=== PATIENT | male | born 1950 | race Caucasian/White ===

== ENCOUNTER → 2024-07-23 | Outpatient (CLI) | payer MEDICARE ==
--- NOTE | 2024-07-24 08:42 | XR ---
EXAMINATION TYPE: XR lumbar spine 3V, XR Hip Complete 2 views RT, XR knee 2 views RT DATE OF EXAM: 07/23/2024 COMPARISON: NONE CLINICAL INDICATION: Male, 74 years old with history of M54.9, M25.551, M25.561; pain and trouble wal steve, history of arthritis FINDINGS: Lumbar spine: There is a grade 3 anterolisthesis L5-S1 with severe degenerative disc disease and endplate spondylos is. Mild to moderate degenerative disc disease and endplate spondylosis throughout the remainder of t he lumbar spine. Vertebral body heights are preserved. Right hip: There is moderate degenerative change of the right hip with axial and weightbearing joint space loss and marginal spurring. No acute fracture, subluxation, or dislocation. Right knee: No joint effusion. Tricompartmental degenerative spurring. At least moderate loss of cartilage and danii int space in the medial compartment with some medial sided loose bodies measuring up to 1.3 cm. Addit ional posterior loose bodies measuring up to 1.2 cm. No acute fracture, subluxation, dislocation. IMPRESSION: 1. Lumbar spine: Grade 3 anterolisthesis at L5-S1 with severe degenerative disc disease. Advanced hyp ertrophic facet arthropathy lower lumbar spine. Unclear if the spondylolisthesis secondary to L5 pars defects or severe facet arthropathy. Mild to moderate degenerative disc disease throughout the remai nder of the lumbar spine. 2. Right hip: Moderate right hip OA. No acute osseous abnormality seen. 3. Right knee: Tricompartment osteoarthrosis, at least moderate in the medial compartment with scatte red loose bodies medially and posteriorly. [facility], Workstation: [email or web address], 07/24/2024 8:40 AM
== END | disposition home or self-care (01) ==
LOC: RADXRMAIN 16:57
PROVIDERS: ATTEND Internal Medicine Geriatric Medicine
DX: M51.379 Other intervertebral disc degeneration, lumbosacral region without mention of lumbar back pain or lower extremity pain (principal); M47.816 Spondylosis without myelopathy or radiculopathy, lumbar region; M43.17 Spondylolisthesis, lumbosacral region; M16.11 Unilateral primary osteoarthritis, right hip; M17.11 Unilateral primary osteoarthritis, right knee
CPT/HCPCS: 72100; 73502

== ENCOUNTER → 2024-08-16 | Outpatient (CLI) | payer MEDICARE ==
--- NOTE | 2024-08-16 10:18 | MR ---
EXAMINATION TYPE: MR lumbar spine wo/w con DATE OF EXAM: 08/16/2024 10:02 AM COMPARISON: None. CLINICAL INDICATION: Male, 74 years old with history of M43.16 SPONDOLISTHESIS, Low back pain into Ri ght thigh/leg x1 year TECHNIQUE: Multiplanar, multisequence images of the lumbar spine were acquired. IV Contrast: 10 mL Gadobutrol (None, if empty) FINDINGS: Cord ends at the L1-L2 level. L5-S1: There is a grade 2 spondylolisthesis of L5 anteriorly on S1. There is loss of disc height at t his level. Disc uncovering is present. No AP spinal canal stenosis is present. Severe bilateral toi inal stenosis is present L4-L5: No focal disc herniation or significant disc bulge. No spinal canal stenosis. Neural foramen are patent. Some facet hypertrophy with ligamentum flavum laxity is present. L3-L4: No focal disc herniation or significant disc bulge. No spinal canal stenosis. Neural foramen are patent. Mild ligamentum flavum laxity is present. L2-L3: No focal disc herniation or significant disc bulge. No spinal canal stenosis. Neural foramen are patent. L1-L2: No focal disc herniation or significant disc bulge. No spinal canal stenosis. Neural foramen are patent. T12-L1: There is increased signal within the L1 vertebral body on T1 and T2-weighted sequences. Some patchy enhancement may be present post contrast imaging. Findings favor a vertebral body hemangioma. If there is clinical concern for metastasis, bone scan could be performed. Signal change in the anter ior inferior vertebral body is less typical for hemangioma. This is not definitely enhancing. On bone scan may be useful for additional evaluation. No focal disc herniation or significant disc bulge. No spinal canal stenosis. Neural foramen are pa tent. IMPRESSION: 1. Grade 2 spondylolisthesis with loss of disc height at L5-S1. Severe bilateral foraminal stenosis i s present. Correlate with S1 radicular symptoms. 2. Suspected hemangioma within the L1 vertebral body. 3. An atypical area of signal may be within the inferior T12 vertebral body. Consider nuclear medicin e bone scan for additional evaluation. [facility], , 08/16/2024 10:15 AM
== END | disposition home or self-care (01) ==
LOC: RADMRIMAIN 08:48
PROVIDERS: ATTEND Internal Medicine Geriatric Medicine
DX: M48.061 Spinal stenosis, lumbar region without neurogenic claudication (principal); M43.17 Spondylolisthesis, lumbosacral region
CPT/HCPCS: 72158; A9585

== ENCOUNTER → 2024-08-28 | Outpatient (CLI) | payer MEDICARE ==
--- NOTE | 2024-08-28 14:47 | NM ---
INDICATION: Patient age:Male; 74 years old; Reason for study: R93.7 previous abnormal findings; [facility]. COMPARISON: MR lumbar spine 08/16/2024, lumbar spine radiograph 129.5. TECHNIQUE: Intravenous administration of 22.9 mCi of Technetium 99m-Medronate followed by multiple sc intigraphic images of the appendicular and axial skeleton. Additionally, small field of view planar a nterior and posterior images of the chest and lumbosacral spine were obtained. FINDINGS: There is increased uptake within the bilateral great toes, bilateral knee, right hip, and right rapp oclavicular joint consistent with degenerative changes. No other photopenic areas or areas of increas ed activity are identified. No suspicious uptake within the spine. Physiologic radiotracer activity is demonstrated in the kidneys and bladder. Delayed radiotracer iden tified within the left renal collecting system and ureter. IMPRESSION: 1. No suspicious uptake within the lumbar spine corresponding to MRI. 2. Retained radiotracer within the left renal collecting system and ureter. Raises concern for hydrou reteronephrosis. Recommend further evaluation with ultrasound. [facility], , 08/28/2024 2:45 PM
== END | disposition home or self-care (01) ==
LOC: RADNMMAIN 09:53
PROVIDERS: ATTEND Internal Medicine Geriatric Medicine
DX: R93.7 Abnormal findings on diagnostic imaging of other parts of musculoskeletal system (principal)
CPT/HCPCS: 78306; A9503

== ENCOUNTER → 2024-09-15 | Outpatient (CLI) | payer MEDICARE ==
--- NOTE | 2024-09-15 15:01 | US ---
EXAMINATION TYPE: US kidneys/renal and bladder DATE OF EXAM: 09/15/2024 COMPARISON: NM 2024. MRI lumbar spine August 16, 2024 CLINICAL INDICATION: Male, 74 years old with history of R93.89 ABNORMAL FINDINGS ON DX IMAGING OF OTH BODY; abnormal bone scan. TECHNIQUE: Grayscale imaging of the bilateral kidneys and urinary bladder: FINDINGS: EXAM MEASUREMENTS: Right Kidney: 12.4 x 5.5 x 5.9 cm Left Kidney: 9.8 x 4.1 x 4.7 cm Right Kidney: wnl Left Kidney: small in sized when compared to right kidney, hydronephrosis, 1.3cm anechoic area infer ior pole, cortical thinning, lobulated contour Bladder: wnl Bilateral Jets seen: no There is no evidence for right-sided hydronephrosis at this point in time. No nephrolithiasis is see n. No concerning solid masses are identified. The urinary bladder is anechoic. IMPRESSION: Moderate left-sided hydronephrosis is confirmed. Consider follow-up CT or nuclear medicin e MAG3 renal study to further evaluate. [facility], , 09/15/2024 2:59 PM
== END | disposition home or self-care (01) ==
LOC: RADUSWWP 14:04
PROVIDERS: ATTEND Internal Medicine Geriatric Medicine
DX: N13.30 Unspecified hydronephrosis (principal); R93.89 Abnormal findings on diagnostic imaging of other specified body structures
CPT/HCPCS: 76770

== ENCOUNTER → 2024-10-31 | Outpatient (CLI) | payer MEDICARE ==
[2024-10-31 13:11] LABS: African American GFR (CKD) >90 (>60 ml/min/1.73 sqM); Blood Urea Nitrogen 31 mg/dL (9-20); Non-African American GFR(CKD) 79 (>60 ml/min/1.73 sqM)
--- NOTE | 2024-10-31 15:36 | CT ---
EXAMINATION TYPE: CT abdomen pelvis wo/w con DATE OF EXAM: 10/31/2024 2:08 PM COMPARISON: None. CLINICAL INDICATION: Male, 74 years old with history of N13.1 HYDRONEPHROSIS W URETERAL STRICTURE, NE C, Hydronephrosis w/utereral stricture. TECHNIQUE: Axial images were obtained from above the diaphragm to the pubic rami in the axial plane a t 5 mm thick sections. Reconstructed images are reviewed on the computer in the coronal plane. CONTRAST: 100ml mL of Isovue 300. Study performed with Oral Contrast DLP: 2581.2 mGycm, Automated exposure control for dose reduction was used. FINDINGS: Limited CT sections are obtained the lung bases. The lung bases are clear. CT ABDOMEN: Liver: Normal Spleen: Normal Pancreas: Normal Adrenal glands: The adrenal glands are normal. Gallbladder: Normal Kidneys: No masses are evident. There is moderate hydronephrosis and marked hydroureter which follows a tortuous course to the urinary bladder. No obstructing etiology is identified. There is some nondi lated left ureter within the left hemipelvis. Distal left ureter however is dilated. No cysts are pre sent. No renal stones are evident. Aorta: Normal Inferior vena cava: Normal. CT PELVIS: Loops of bowel within the abdomen and pelvis are normal. This study is without oral contrast limi ting bowel evaluation. Appendix: Normal as visualized. Urinary bladder: Normal. Genitourinary structures: Prostate appears normal Osseous structures: No suspicious lytic or sclerotic lesions. IMPRESSION: 1. Moderate left hydronephrosis and marked hydroureter to the urinary bladder. There is a short segm ent of left ureter which is not dilated in the left hemipelvis. Consider ureteroscopy for additional evaluation [facility], , 10/31/2024 3:34 PM
== END | disposition home or self-care (01) ==
LOC: RADCTMAIN 12:25
PROVIDERS: ATTEND Urology
DX: N13.1 Hydronephrosis with ureteral stricture, not elsewhere classified (principal)
CPT/HCPCS: 82565; 84520; 74178; 36415; Q9967

== ENCOUNTER → 2024-11-10 | Outpatient (CLI) | payer MEDICARE ==
[2024-11-10 16:51] LABS: Basophils # (A) 0.04 X 10*3/uL (0.00-0.10); Basophils % (A) 0.6 %; Eosinophils # (A) 0.24 X 10*3/uL (0.04-0.35); Eosinophils % (A) 3.7 %; HCT 39.4 % (39.6-50.0); HGB 13.2 g/dL (13.0-17.0); Lymphocytes # (A) 1.66 X 10*3/uL (0.90-5.00); Lymphocytes % (A) 25.4 %; MCHC 33.5 g/dL (32.0-37.0); MCV 101.5 FL (80.0-97.0); Mean Platelet Volume 9.8 FL (9.5-12.2); Monocytes # (A) 0.57 X 10*3/uL (0.20-1.00); Monocytes % (A) 8.7 %; NRBC Per 100 WBC 0 X 10*3/uL (0.00-0.01); Neutrophils # (A) 3.98 X 10*3/uL (1.80-7.70); Platelet Count 207 X 10*3/uL (140-440); RBC 3.88 X 10*6/uL (4.40-5.60); RDW 13.3 % (11.5-14.5); WBC 6.53 X 10*3/uL (4.50-10.00)
[2024-11-10 16:52] LABS: BUN/Creat Ratio 20.64 Ratio (12.00-20.00); Blood Urea Nitrogen 22.7 mg/dL (9.0-27.0); Calcium 9.6 mg/dL (8.7-10.3); Carbon Dioxide 24.9 mmol/L (21.6-31.8); Chloride 103 mmol/L (96-109); Glucose 104 mg/dL (70-110); Potassium 4.4 mmol/L (3.5-5.5); Sodium 138 mmol/L (135-145)
[2024-11-10 17:04] LABS: Appearance,Urine Clear (Clear); Bilirubin,Urine Negative (Negative); Blood,Urine Negative (Negative); Color,Urine Yellow (Yellow); Ketones,Urine Negative (Negative); Nitrite,Urine Negative (Negative); PH, Urine 5.5; Specific Gravity,Urine 1.019 (1.001-1.030); Urobilinogen,Urine 0.2 E.U./DL
== END | disposition home or self-care (01) ==
LOC: LABWHC1 10:42
PROVIDERS: ATTEND Urology
DX: N20.0 Calculus of kidney (principal); N40.1 Benign prostatic hyperplasia with lower urinary tract symptoms; N13.1 Hydronephrosis with ureteral stricture, not elsewhere classified
CPT/HCPCS: 36415; 80048; 81003; 85025; 87086; 93005

== ENCOUNTER → 2025-01-06 | Outpatient (CLI) | payer MEDICARE | END | disposition home or self-care (01) | LOC: LABPAT 10:39 | PROVIDERS: ATTEND Orthopaedic Surgery | DX: Z01.812 Encounter for preprocedural laboratory examination (principal); M16.11 Unilateral primary osteoarthritis, right hip; Z22.322 Carrier or suspected carrier of Methicillin resistant Staphylococcus aureus | CPT/HCPCS: 86850; 86900; 86901; 87070 ==

== ENCOUNTER 2025-01-09 10:33 | Day surgery (SDC) | payer MEDICARE ==
[2025-01-06 08:27] VITALS: BMI 31.3
[~2025-01-09 10:33] MED LIST: TRANEXAMIC 1,000 MG/100ML-NACL 1,000 MG in SALINE 1 100ML.BAG IV PRN; TRANEXAMIC 1,000 MG/100ML-NACL 1,000 MG in SALINE 1 100ML.BAG IVPB PRN
[2025-01-09] MEDS ORDERED: LIDOCAINE 1% (10MG/ML) FOR IV START INTRADERMA PRN (10:44)
[2025-01-09] MEDS ORDERED: HYDROmorphone 0.5 MG/0.5 ML SYRINGE IVP PRN ×4 (10:44→14:18)
[2025-01-09] MEDS: DOCUSATE 100 MG CAP PO PRN (11:11)
[2025-01-09] MEDS: ACETAMINOPHEN TAB 500 MG TAB PO PRN (11:11)
[2025-01-09] MEDS: oxyCODONE ER 10 MG TAB.ER.12H PO PRN (11:12)
[2025-01-09] MEDS: KETOROLAC 15 MG/ML 1 ML VIAL IVP PRN (11:42)
[2025-01-09 11:43] LABS: Glucose,Whole Blood 118 mg/dL (70-110)
[2025-01-09] MEDS: DEXAMETHASONE SOD PHOSPHATE 10 MG/ML 1 ML VIAL IV PRN (11:43)
[2025-01-09] MEDS: FAMOTIDINE 20 MG/2 ML VIAL IVP PRN (11:43)
[2025-01-09] MEDS: ONDANSETRON 4 MG/2 ML VIAL IVP PRN (11:43)
[2025-01-09] MEDS: LACTATED RINGERS 1,000 ML IV SCH (11:52)
[2025-01-09] MEDS: IV FLUID CONTINUATION 1,000 ML IV ONE (11:54)
[2025-01-09 12:09] LABS: INR 1.0 (<1.2); Prothrombin Time 10.9 sec (10.0-12.5)
[2025-01-09] MEDS: MIDAZOLAM 2 MG/2 ML VIAL IV ONE (12:15)
[2025-01-09] MEDS: fentaNYL (PF) 50 MCG/ML 2 ML AMP IVP PRN (12:15)
--- NOTE | 2025-01-09 12:30 | P.ANPRN ---
Procedure Note - Anesthesia - Nerve Block Performed Right Felix Single Time Out Performed: Yes (1214) Date of Procedure: 01/09/25 Procedure Start Time: 12:15 Procedure Stop Time: 12:19 Location of Patient: PreOp Indication: Acute Post-Operative Pain, Requested by Surgeon Specifically requested for management of pain by DrEmilee: Rodrigo Davidson Sedation Type: Sedate with meaningful contact maintained Preparation: Sterile Prep Position: Supine Catheter: None Needle Types: Pajunk Needle Gauge: 21 Ultrasound used to visualize needle placement: Yes Ultrasound used to observe medication spread: Yes Injectate: 0.5% Ropivacaine (see comment for volume) (30cc+decadron 4mg=) Blood Aspirated: No Pain Paresthesia on Injection Noted: No Resistance on Injection: Normal Image Stored and Saved: Yes Events: Uneventful and Well Tolerated
[2025-01-09] MEDS ORDERED: PROPOFOL 10 MG/ML 20 ML VIAL IV ONE (12:40)
[2025-01-09] MEDS ORDERED: SUCCINYLCHOLINE CHLORIDE 200 MG/10 ML VIAL IV ONE (12:40)
[2025-01-09] MEDS ORDERED: NEOSTIGMINE 1 MG/ML 10 ML VIAL ONE (12:40)
[2025-01-09] MEDS ORDERED: fentaNYL (PF) 50 MCG/ML 2 ML AMP ONE (12:40)
[2025-01-09] MEDS ORDERED: GLYCOPYRROLATE 0.2 MG/ML 2 ML VIAL ONE (12:40)
[2025-01-09] MEDS ORDERED: TRANEXAMIC 1,000 MG/100ML-NACL PREMIX BAG ONE (12:40)
[2025-01-09] MEDS ORDERED: DEXAMETHASONE SOD PHOSPHATE 4 MG/ML 1 ML VIAL ONE (12:40)
[2025-01-09] MEDS ORDERED: ROPIVACAINE 5 MG/ML 30 ML VIAL ONE (12:40)
[2025-01-09] MEDS ORDERED: ROCURONIUM 10 MG/ML (5 ML VIAL) IV ONE (12:40)
[2025-01-09] MEDS: ROPIVACAINE/EPI/CLONIDINE/KET 50 ML SYRINGE MISCELLANE PRN (13:23)
[2025-01-09] MEDS: LACTATED RINGERS 1,000 ML IV ONE (14:14)
[2025-01-09] MEDS ORDERED: hydrOXYzine HCL 25 MG TAB PO PRN (14:18)
[2025-01-09] MEDS ORDERED: diazePAM 5 MG TAB PO PRN (14:18)
[2025-01-09] MEDS ORDERED: NALOXONE 0.4 MG/ML 1 ML VIAL IV PRN (14:18)
[2025-01-09] MEDS ORDERED: MAGNESIUM HYDROXIDE 2,400 MG/30 ML CUP PO PRN (14:18)
--- NOTE | 2025-01-09 14:18 | P.OP ---
Date of Procedure: 01/09/25 Preoperative Diagnosis: 1. Severe right hip osteoarthritis Postoperative Diagnosis: Same Procedure(s) Performed: Right direct anterior total hip replacement he Implants: 1. Boring Trident II Acetabular Cup, Size #52 2. Jose Insignia Size # Femoral Stem, High Offset 3. Biolox delta femoral head, 36 mm, + 0 mm neck Anesthesia: GETA Surgeon: Rodrigo Davidson Auto Engine Mechanic #1: Rodriguez Santiago Estimated Blood Loss (ml): 300 IV fluids (ml): 800 Pathology: none sent Condition: stable Disposition: PACU Indications for Procedure: I had a long discussion with the patient in the office on the potential risks and complications of an elective total hip replacement through a direct anterior approach. Risks discussed include, but are certainly not limited to, risks from anesthesia, superficial infection requiring local wound care or antibiotics, deep ryann-prosthetic joint infection and the treatment required to eradicate infection, intraoperative fracture, postoperative periprosthetic fracture, da mage to local blood vessels or nerves particularly the lateral femoral cutaneous nerve, delayed wound healing requiring local wound care or possibly surgical debridement, hip dislocation, leg length discrepancy, soft tissue irritation around the total hip implant such as iliopsoas tendinitis or trochanteric bursitis, wear and osteolysis from the implants, squeaking or audible noises, groin pain, thigh pain, heterotopic ossification, stiffness, aseptic loosening of the implants, dissatisfaction with surgical outcome, need for revision surgery, DVT, PE, swelling of the operative extremity, acute coronary event, stroke, failure to thrive, and possibly loss of life or limb. The patient understands that while these are the most common complications after an elective hip replacement there are certainly other less common complications possible. They were given ample time to ask questions regarding the potential complications of a hip replacement. Following our discussion the patient provid ed their verbal and written consent to go forward with an elective total hip replacement. Operative Findings: Severe right hip arthritis with complete loss of cartilage and collapse of the superior weightbearing portion of the femoral head. Description of Procedure: The patient was identified in the preoperative holding area and the correct hip was marked with my initials. I reviewed the procedure and consent with the patient. All of their questions were answered. The patient was then brought back into the operating room by anesthesia. While on the [facility] anesthesia was administered by the anesthesia team. Preoperative antibiotics and tranexamic acid were also given. After the patient was under anesthesia I examined their ankles to determine their preoperative leg length discrepancy. The skin over the anterior aspect of the hip was shaved to remove hair over the site of planned incision. Both feet and ankles were padded with webril and boots for the [place] were applied. The patient was then carefully transferred onto the [place] table. A perineal post was immediately placed. The arms were placed on arm holders and were well-padded. Both boots were secured to the spars on the A[place]ell table. The patient was positioned so that the pelvis was centered over the post. Nonsterile drapes were applied. A timeout was performed identifying the correct patient, operative extremity, and procedure. At this point fluoroscopy was brought in to take preoperative images of the pelvis and operative hip. Using the standing AP pelvis from the office as a template, a comparable image was obtained with fluoroscopy. A metallic bar was used to create a bi-ischial line for use as a reference to leg length adjustments during the procedure. Global offset was also measured on both the operative and nonoperative leg. Fluoroscopy was then brought out and a pre-scrub using a chlorhexidine scrub brush was performed. The operative limb was then prepped and draped in the standard sterile fashion. An anterior longitudinal incision was made lateral and distal to the ASIS. The skin and subcutaneous tissues were incised sharply. The underlying tensor fascia was identified and incised in its midportion. The fascia was dissected free from the underlying muscle and the muscle belly was retracted. A blunt tipped cobra retractor was placed over the superior neck under the muscle fibers of the gluteus minimus. The deep enveloping fascia of the tensor was incised. The anterior leash of vessels were then identified and cauterized. The fascia between the rectus and the capsule was then incised and the pre-capsular fat was excised. A second Cobra was placed inferior to the neck. The interval between the rectus and iliocapsularis and the hip capsule was developed and a retractor was placed carefully over the anterior rim of the acetabulum. A T-shaped anterior capsulotomy was performed. The superior capsular leaflet was left in place in the inferior capsular flap was excised. The Cobra retractors were placed intracapsularly. We then made a femoral neck osteotomy according to preoperative and intraoperative templating and confirmed the level of the osteotomy using fluoroscopic imaging. The femoral head was removed, passed off to the back table, and sized. The superior capsular flap was excised. Retractors were placed circumferentially exposing the acetabulum. We then circumferentially debrided the acetabulum free of labrum and osteophytes. The pulvinar was removed to fully visualize the cotyloid fossa. We then sequentially reamed to achieve peripheral fit and excellent bleeding subchondral bone. The socket was thoroughly irrigated. The acetabular component was impacted into the appropriate position using fluoroscopy to guide version, inclination, and depth of insertion taking care to have a comparable image of the AP pelvis to the standing image taken in the office. An excellent press-fit was achieved and final position was confirmed using fluoroscopy. The press fit was augmented with a bony cancellus dome screw. The liner was then impacted into the socket. Attention was then turned to the femur. The remnant dorsal lateral capsule was excised. The short external rotators were visible and protected. A bone hook was used to confirm appropriate translation of the trochanter away from the acetabulum. The leg was then extended and adducted and the bone hook was used to elevate the femur for broaching. A box osteotome and blunt tipped canal sound was then utilized to gain access to the femoral canal. We then sequentially broached the femur in appropriate anteversion until excellent torsional stability was achieved. The neck cut was brought flush to the trial broach with a calcar planar. A trial neck and head were then placed onto the broach and the hip was atraumatically reduced under direct visualization. External rotation to 90 was performed to assess stability. Fluoroscopy was brought in. An AP and lateral fluoroscopic image of the proximal femur was obtained to assess position and fill of the trial broach. An AP of the pelvis was then obtained and matched to the preoperative image taken. A bi-ischial bar was then placed and measurements were taken to assess changes in length and offset. The hip was then carefully dislocated, the proximal femur was exposed, and the trial implants were removed. The wound and proximal femur was thoroughly irrigated using sterile saline and pulsatile lavage. The final femoral implant was dispensed and gently tapped into place generating an excellent press-fit. The trunnion was cleansed and the final head was tapped into place to engage the Genao taper. The acetabulum was irrigated and visualized to be free of debris. The hip was carefully reduced. Stability was checked clinically with external rotation to 90 and there was no evidence of instability. Final fluoroscopic images were taken. The wound was then thoroughly irrigated and soaked with a dilute Betadine rinse for 3 minutes. 3 L of sterile saline was irrigated through the wound using pulsatile lavage. Local anesthetic cocktail was injected into the soft tissues around the surgical field. The wound was then closed in layers. A sterile dressing was placed over the surgical incision. The drapes were taken down and the patient was ca refully transferred off of the A[place] table. Following removal of the boots the leg lengths felt acceptable. The patient was then taken to recovery room having tolerated the procedure well. Rodriguez Santiago PA-C was required as a skilled assistant distribution manager due to the complexity of surgery for patient positioning, draping, exposure, retraction, closure of wound and application of dressing. PLAN: The patient can weight-bear as tolerated on the operative extremity. 2 doses of postoperative antibiotics. DVT prophylaxis with aspirin 81 mg twice a day based on preoperative risk stratification. Physical therapy for gait training.
--- NOTE | 2025-01-09 14:48 | FL ---
EXAMINATION TYPE: FL guidance operating room, XR Hip Limited RT DATE OF EXAM: 01/09/2025 FLUOROSCOPY 28 sec fluoro, dap 2.2719 mGym2. 7 intraoperative fluoroscopic images are submitted during sequential steps and right total hip arthroplasty. Final image shows gross anatomic alignment with well seated hardware. [facility], , 01/09/2025 2:46 PM
[2025-01-09 15:21] LABS: Glucose,Whole Blood 186 mg/dL (70-110)
[2025-01-09] MEDS: SODIUM CHLORIDE 0.9% 1,000 ML IV SCH (16:01)
[2025-01-09 16:49] LABS: Glucose,Whole Blood 203 mg/dL (70-110)
[2025-01-09] MEDS ORDERED: DEXTROSE 50% SYRINGE 50 ML IVP PRN ×2 (17:40)
[2025-01-09 20:06] LABS: Glucose,Whole Blood 163 mg/dL (70-110)
[2025-01-09] MEDS: ASPIRIN 81 MG PO SCH (21:12)
[2025-01-09] MEDS: SENNOSIDES-DOCUSATE SODIUM 1 EACH TAB PO SCH (21:12)
[2025-01-09] MEDS: INSULIN LISPRO (HumaLOG) 100 UNIT/ML 10 mL VL SQ SCH (21:14)
[2025-01-09] MEDS: FINASTERIDE 5 MG TAB PO SCH (22:23)
[2025-01-09] MEDS: TAMSULOSIN 0.4 MG CAP.ER.24H PO SCH (22:23)
[2025-01-10] MEDS: HYDROcodone/APAP 10-325MG 1 EACH TAB PO PRN (05:34)
[2025-01-10 06:18] LABS: Glucose,Whole Blood 146 mg/dL (70-110)
[2025-01-10] MEDS: DAPAGLIFLOZIN PROPANEDIOL 5 MG TABLET PO SCH (07:50)
[2025-01-10] MEDS: MELOXICAM 7.5 MG TAB PO SCH (07:50)
[2025-01-10] MEDS: MULTIVITAMINS, THERA 1 EACH TAB PO SCH ×2 (07:50→11:57)
[2025-01-10] MEDS: FAMOTIDINE 20 MG TAB PO SCH (07:50)
[2025-01-10] MEDS: ATORVASTATIN 10 MG TAB PO SCH (07:50)
[2025-01-10 08:54] LABS: Basophils # (A) 0.02 X 10*3/uL (0.00-0.10); Basophils % (A) 0.1 %; Eosinophils # (A) 0 X 10*3/uL (0.04-0.35); Eosinophils % (A) 0 %; HCT 33.6 % (39.6-50.0); HGB 11.1 g/dL (13.0-17.0); Immature Grans, Automated 0.70 %; Lymphocytes # (A) 0.78 X 10*3/uL (0.90-5.00); Lymphocytes % (A) 5.6 %; MCH 32.6 pg (27.0-32.0); MCHC 33.0 g/dL (32.0-37.0); MCV 98.8 FL (80.0-97.0); Monocytes # (A) 1.16 X 10*3/uL (0.20-1.00); Monocytes % (A) 8.4 %; NRBC Per 100 WBC 0 X 10*3/uL (0.00-0.01); Neutrophils # (A) 11.78 X 10*3/uL (1.80-7.70); Neutrophils % (A) 85.2 %; Platelet Count 225 X 10*3/uL (140-440); RBC 3.40 X 10*6/uL (4.40-5.60); RDW 12.9 % (11.5-14.5); WBC 13.84 X 10*3/uL (4.50-10.00)
--- NOTE | 2025-01-10 09:27 | P.PN ---
Subjective Patient is doing really well this morning. The pain in his right hip is controlled. His main issue has been urinary retention. He says he has a hi story of this in the past. Objective - Vital Signs Vital signs: Vital Signs Temp 98.5 F 01/10/25 07:00 Pulse 72 01/10/25 07:00 Resp 18 01/10/25 07:00 BP 148/72 01/10/25 07:00 Pulse Ox 95 01/10/25 07:00 FiO2 Intake & Output 01/09/25 01/10/25 01/10/25 18:59 06:59 18:59 Intake Total 1200 240 Output Total 300 1400 Balance 900 -1400 240 Weight 93.6 kg Intake: IV 1200 Oral 240 Output: Urine 1400 Straight 1400 Estimated Blood Loss 300 Other: Voiding Method Toilet Toilet Diaper Diaper - Exam Patient was seen this morning at bedside. He is resting comfortably in his bed. He is alert and able to answer questions. A focused exam of the right hip was conducted. The dressing is intact with no drainage or strikethrough. Femoral nerve function is intact. He is able to actively plantarflex and dorsiflex his ankle and his toes. - Labs CBC & Chem 7: 01/10/25 03:15 Labs: Abnormal Lab Results - Last 24 Hours (Table) 01/09/25 01/09/25 01/09/25 Range/Units 11:41 15:19 16:47 WBC (4.50-10.00) X 10*3/uL RBC (4.40-5.60) X 10*6/uL Hgb (13.0-17.0) g/dL Hct (39.6-50.0) % MCV (80.0-97.0) FL MCH (27.0-32.0) pg Immature Gran # (0.00-0.04) X 10*3/uL Neutrophils # (1.80-7.70) X 10*3/uL Lymphocytes # (0.90-5.00) X 10*3/uL Monocytes # (0.20-1.00) X 10*3/uL Eosinophils # (0.04-0.35) X 10*3/uL POC Glucose (mg/dL) 118 H 186 H 203 H (70-110) mg/dL 01/09/25 01/10/2525 Range/Units 20:04 03:15 06:16 WBC 13.84 H (4.50-10.00) X 10*3/uL RBC 3.40 L (4.40-5.60) X 10*6/uL Hgb 11.1 L (13.0-17.0) g/dL Hct 33.6 L (39.6-50.0) % MCV 98.8 H (80.0-97.0) FL MCH 32.6 H (27.0-32.0) pg Immature Gran # 0.10 H (0.00-0.04) X 10*3/uL Neutrophils # 11.78 H (1.80-7.70) X 10*3/uL Lymphocytes # 0.78 L (0.90-5.00) X 10*3/uL Monocytes # 1.16 H (0.20-1.00) X 10*3/uL Eosinophils # 0 L (0.04-0.35) X 10*3/uL POC Glucose (mg/dL) 163 H 146 H (70-110) mg/dL Assessment and Plan Assessment: Postoperative day #1 status post right direct anterior total hip replacement doing well Post operative urinary retention, history of urinary retention and prostatic hypertrophy Plan: 1. Weight-bear as tolerated right lower extremity, up with assistance and a walker 2. 2 doses postoperative and 3. DVT prophylaxis with aspirin 81 mg twice daily 4. Leave surgical dressing in place 5. Internal medicine for perioperative medical management 6. Will defer to internal medicine and nursing for treatment of postoperative urinary retention 7. Dispo: Will plan on keeping the patient in additional 24 hours both for pain control and monitoring of his urinary retention. We will reassess tomorrow morning for possible discharge
[2025-01-10] MEDS: diazePAM 5 MG TAB PO PRN (10:07)
[2025-01-10 11:41] LABS: Glucose,Whole Blood 149 mg/dL (70-110)
--- NOTE | 2025-01-10 11:42 | XR ---
EXAMINATION TYPE: XR chest 1V portable DATE OF EXAM: 01/10/2025 11:34 AM COMPARISON: Chest radiographs from 06/03/2013 TECHNIQUE: XR chest 1V portable Portable AP radiograph of the chest. CLINICAL INDICATION:Male, 74 years old with history of sob; FINDINGS: Lungs/Pleura: There is no evidence of pleural effusion, focal consolidation, or pneumothorax. Pulmonary vascularity: Unremarkable. Heart/mediastinum: Cardiomediastinal silhouette is unremarkable. Atherosclerotic calcifications are seen in the aorta. Musculoskeletal: No acute osseous pathology. IMPRESSION: No acute cardiopulmonary disease/process. [facility], , 01/10/2025 11:39 AM
[2025-01-10] MEDS: HYDROcodone/APAP 5-325MG 1 EACH TAB PO PRN (12:02)
[2025-01-10 13:12] LABS: African American GFR (CKD) 82 (>60 ml/min/1.73 sqM); Anion Gap 13 mmol/L; Blood Urea Nitrogen 33 mg/dL (9-20); Calcium 9.2 mg/dL (8.4-10.2); Carbon Dioxide 24 mmol/L (22-30); Chloride 100 mmol/L (98-107); Glucose 136 mg/dL (74-99); Magnesium 2.0 mg/dL (1.6-2.3); Non-African American GFR(CKD) 71 (>60 ml/min/1.73 sqM); Potassium 4.0 mmol/L (3.5-5.1); Sodium 137 mmol/L (137-145)
[2025-01-10] MEDS: TAMSULOSIN 0.4 MG CAP.ER.24H PO STA (13:12)
[2025-01-10 13:29] LABS: Bilirubin,Urine Negative (Negative); Blood,Urine Negative (Negative); Color,Urine Colorless; Glucose,Urine (UA) 4+ (Negative); Ketones,Urine Negative (Negative); Leukocyte Esterase,Urine Negative (Negative); Nitrite,Urine Negative (Negative); PH, Urine 5.0 (5.0-8.0); Protein,Urine Negative (Negative); Specific Gravity,Urine 1.025 (1.001-1.035); Urobilinogen,Urine <2.0 mg/dL (<2.0)
--- NOTE | 2025-01-10 15:08 | P.CONS ---
History of Present Illness - Reason for Consult Consult date: 01/10/25 Medical management, status post right total hip arthroplasty - History of Present Illness This is a pleasant 74-year-old male who was recently admitted under orthopedic services status post right total hip arthroplasty. Patient follows with Dr. Gastelum in the outpatient setting with a past medical history of diabetes melitis, GERD, hard of hearing, BPH, previous left leg rash earlier this month in December, obesity. Patient denies smoking alcohol or illicit drug use. Patient did undergo presurgical clearance and at the bedside reports he had to be evaluated twice by primary care provider as he did have an ongoing concern of a rash on the left lower extremity and did receive a few short days of antibiotics and followed up and is cleared with no skin rash noted. Patient reports has been having some urinary retention and chronically takes finasteride and Flomax and will continue retention protocol with straight cath and monitoring for postvoid residuals and will give an additional dose of Flomax and home m edications have been reviewed and resumed. Patient is also a diabetic and blood sugars have been mildly elevated, have added sliding scale and will adjust and add long-acting if needed. Recommend Accu-Cheks AC and at bedtime. Patient with incentive spirometer at the bedside encouraged to continue using at least 10 times every hour while awake. Patient return demonstrated and achieved 2500 although was instructed and reeducated on proper use of incentive spirometer with at bedside. Patient also encouraged to get up out of the bed more frequently and sit up in the chair. Patient maintained on gentle hydration and will discontinue as patient is eating and drinking with no difficulties. Labs reviewed from this morning reveal a mildly elevated white count of 13.8, hemoglobin stable at 11.1, platelets 225, sodium 137 with a potassium of 4.0, BUN is 33 with a creatinine of 1.02, blood sugars have been into the 130s and 140s, hemoglobin A1c is 5.9, magnesium is 2.0. Urinalysis was obtained and is negative other than 4+ glucose. REVIEW OF SYSTEMS: CONSTITUTIONAL: No fever, no malaise, no fatigue. HEENT: No recent visual problems or hearing problems. Denied any sore throat. CARDIOVASCULAR: No chest pain, orthopnea, PND, no palpitations, no syncope. PULMONARY: No shortness of breath, no cough, no hemoptysis. GASTROINTESTINAL: No diarrhea, no nausea, no vomiting, no abdominal pain. NEUROLOGICAL: No headaches, no weakness, no numbness. HEMATOLOGICAL: Denies any bleeding or petechiae. GENITOURINARY: Denies any burning micturition, frequency, or urgency. Reporting was having difficulty urinating status post procedure MUSCULOSKELETAL/RHEUMATOLOGICAL: Denies any joint pain, swelling, or any muscle pain. Reports of some right hip pain ENDOCRINE: Denies any polyuria or polydipsia. The rest of the 14-point review of systems is negative. PHYSICAL EXAMINATION: GENERAL: The patient is alert and oriented x3, not in any acute distress. Well developed, well nourished. Elderly appearing, obese HEENT: Pupils are round and equally reacting to light. EOMI. No scleral icterus. No conjunctival pallor. Normocephalic, atraumatic. No pharyngeal erythema. No thyromegaly. CARDIOVASCULAR: S1 and S2 muffled PULMONARY: Diminished breath sounds bilaterally otherwise chest is clear to auscultation, no wheezing or crackles. ABDOMEN: Soft, obese, nontender, nondistended, normoactive bowel sounds. No palpable organomegaly. MUSCULOSKELETAL: No joint swelling or deformity. EXTREMITIES: No cyanosis, clubbing, or pedal edema. Right hip surgical dressing is dry and intact, left lower extremity outer lateral side with previous rash has resolved and skin is intact right gaspar, chronic lesion noted NEUROLOGICAL: Gross neurological examination did not reveal any focal deficits. Diffusely weak SKIN: No rashes. Assessment: Status post right total hip arthroplasty Urinary retention with history of BPH and enlarged prostate, Home medications resumed including Flomax Leukocytosis, likely reactive, urinalysis was negative, patient denies cough or shortness of breath or recent sick contacts Obesity with a BMI of 31.4 History of diabetes mellitus, type II History of GERD Hard of hearing GI prophylaxis DVT prophylaxis Full code Plan: Patient was admitted to orthopedics status post right hip arthroplasty, postop day 1 Patient is having some weakness and slightly wobbly with physical therapy with difficulty getting up out of the bed, being held overnight for continued pain management and reevaluation to assess if patient can manage going home as patient lives with who is also elderly Home medications reviewed and resumed as appropriate Patient with incentive spirometer at the bedside encouraged to use at least 10 times every hour while awake including return demonstration and proper use Patient was maintained on gentle hydration and will discontinue as patient is eating and drinking with no difficulties Labs reviewed and white count mildly elevated, urinalysis was obtained and negative other than 4+ glucose which patient is a diabetic Patient does have history of BPH and enlarged prostate have resumed home medications including Flomax and will give additional dose and recommend to continue with straight cath and monitoring for postvoid residuals Encouraged increase activity as tolerated and instructed the patient and to sit up more frequently in the chair and continue with incentive spirometer use We will continue to follow with orthopedics during hospitalization. Thank you kindly for this consultation. The impression and plan of care has been dictated by Eloisa Trejo, Nurse Practitioner as directed. Dr. Sahil MD I have performed a history and examination and MDM of this patient, discussed the same with the dictator, and agree with the dictator's assessment and plan as written ,documented as a scribe. Based on total visit time, I have performed more than 50% of the visit. Past Medical History Past Medical History: Diabetes Mellitus, GERD/Reflux, Hearing Disorder / Deafness, Prostate Disorder, Skin Disorder Additional Past Medical History / Comment(s): Type III diabetic. Enlarged prostate. 12/2024 current rash to lt leg. 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 Past Anesthesia/Blood Transfusion Reactions: No Reported Reaction Additional Past Anesthesia/Blood Transfusion Reaction / Comm: "It takes awhile for him to wake up.' Past Psychological History: No Psychological Hx Reported Smoking Status: Never smoker Past Alcohol Use History: None Reported Past Drug Use History: None Reported - Past Family History Mother Family Medical History: Cancer Medications and Allergies Home Medications Medication Instructions Recorded Confirmed Type Acetaminophen-Codeine 300-30mg 1 tab PO Q6H PRN 01/05/25 01/05/25 History [Tylenol w/codeine #3] Atorvastatin [Lipitor] 10 mg PO QAM 01/05/25 01/05/25 History B-12(Unknown Dose) 1 dose PO QAM 01/05/25 01/05/25 History Calcium(Unknown Dose) 1 dose PO QAM 01/05/25 01/05/25 History Empagliflozin [Jardiance] 10 mg PO QAM 01/05/25 01/05/25 History Finasteride [Proscar] 5 mg PO BID 01/05/25 01/05/25 History Fish Oil (Unknown Dose) 1 dose PO QAM 01/05/25 01/05/25 History Gabapentin [Neurontin] 300 mg PO TID 01/05/25 01/05/25 History Losartan [Cozaar] 25 mg PO QAM 01/05/25 01/05/25 History Magnesium (Unknown Dose) 1 dose PO QAM 01/05/25 01/05/25 History Meloxicam [Mobic] 7.5 mg PO BID 01/05/25 01/05/25 History Multivitamins, Thera [Multivitamin 1 tab PO DAILY 01/05/25 01/05/25 History (formulary)] Tamsulosin [Flomax] 0.4 mg PO HS 01/05/25 01/05/25 History Zinc(Unknown Dose) 1 dose PO QAM 01/05/25 01/05/25 History valACYclovir HCL [Valacyclovir] 1,000 mg PO TID 01/05/25 01/05/25 History Allergies Allergy/AdvReac Type Severity Reaction Status Date / Time No Known Allergies Allergy Verified 01/09/25 11:10 Physical Exam Vitals: Vital Signs Temp Pulse Resp BP Pulse Ox 01/10/25 07:00 98.5 F 72 18 148/72 95 01/10/25 00:33 98.1 F 51 L 16 123/66 98 01/09/25 19:04 97.9 F 62 16 104/56 98 01/09/25 17:45 72 100/65 94 L 01/09/25 17:30 71 123/74 95 01/09/25 17:15 86 123/76 95 01/09/25 17:00 92 112/71 93 L 01/09/25 16:45 76 125/71 93 L 01/09/25 15:55 58 L 16 122/63 97 01/09/25 15:40 64 16 124/61 97 01/09/25 15:25 63 18 125/66 97 01/09/25 15:10 81 16 118/50 98 01/09/25 14:55 80 16 112/52 98 01/09/25 14:40 97.9 F 100 15 140/98 97 01/09/25 12:36 49 L 12 110/79 97 01/09/25 12:21 50 L 12 115/68 95 01/09/25 11:15 97.2 F L 54 L 20 150/73 97 Intake and Output 01/09/25 01/10/25 01/10/25 22:59 06:59 14:59 Intake Total 150 240 Output Total 1400 Balance 150 -1400 240 Intake: IV 150 Oral 240 Output: Urine 1400 Straight 1400 Other: Voiding Method Toilet Toilet Diaper Diaper Weight 93.6 kg Results CBC & Chem 7: 01/10/25 03:15 01/10/25 12:03 Labs: Abnormal Lab Results - Last 24 Hours (Table) 01/09/25 01/09/25 01/09/25 Range/Units 11:41 15:19 16:47 WBC (4.50-10.00) X 10*3/uL RBC (4.40-5.60) X 10*6/uL Hgb (13.0-17.0) g/dL Hct (39.6-50.0) % MCV (80.0-97.0) FL MCH (27.0-32.0) pg Immature Gran # (0.00-0.04) X 10*3/uL Neutrophils # (1.80-7.70) X 10*3/uL Lymphocytes # (0.90-5.00) X 10*3/uL Monocytes # (0.20-1.00) X 10*3/uL Eosinophils # (0.04-0.35) X 10*3/uL POC Glucose (mg/dL) 118 H 186 H 203 H (70-110) mg/dL 01/09/25 01/10/25 01/10/25 Range/Units 20:04 03:15 06:16 WBC 13.84 H (4.50-10.00) X 10*3/uL RBC 3.40 L (4.40-5.60) X 10*6/uL Hgb 11.1 L (13.0-17.0) g/dL Hct 33.6 L (39.6-50.0) % MCV 98.8 H (80.0-97.0) FL MCH 32.6 H (27.0-32.0) pg Immature Gran # 0.10 H (0.00-0.04) X 10*3/uL Neutrophils # 11.78 H (1.80-7.70) X 10*3/uL Lymphocytes # 0.78 L (0.90-5.00) X 10*3/uL Monocytes # 1.16 H (0.20-1.00) X 10*3/uL Eosinophils # 0 L (0.04-0.35) X 10*3/uL POC Glucose (mg/dL) 163 H 146 H (70-110) mg/dL
[2025-01-10 16:35] LABS: Glucose,Whole Blood 159 mg/dL (70-110)
[2025-01-10] MEDS: ONDANSETRON 4 MG/2 ML VIAL IVP PRN (17:13)
[2025-01-10 20:38] LABS: Glucose,Whole Blood 152 mg/dL (70-110)
[2025-01-11 06:07] LABS: Glucose,Whole Blood 136 mg/dL (70-110)
[2025-01-11 09:05] LABS: Anion Gap 12.40 mmol/L (4.00-12.00); BUN/Creat Ratio 22.00 Ratio (12.00-20.00); Blood Urea Nitrogen 22.0 mg/dL (9.0-27.0); Calcium 8.7 mg/dL (8.7-10.3); Carbon Dioxide 22.6 mmol/L (21.6-31.8); Chloride 103 mmol/L (96-109); Glucose 140 mg/dL (70-110); Potassium 4.0 mmol/L (3.5-5.5); Sodium 138 mmol/L (135-145)
--- NOTE | 2025-01-11 09:12 | P.PN ---
Subjective Events over the last 24 hours were noted. The patient required placement of a Escalona catheter due to urinary retention. The patient is complaining of pain in his right hip as well as generalized bodyaches and neck pain. He also says that he is confused. Objective - Vital Signs Vital signs: Vital Signs Temp 99.0 F 01/11/25 08:00 Pulse 84 01/11/25 08:00 Resp 16 01/11/25 08:00 BP 123/65 01/11/25 08:00 Pulse Ox 96 01/11/25 08:00 FiO2 Intake & Output 01/10/25 01/11/25 01/11/25 18:59 06:59 18:59 Intake Total 2580 250 Output Total 1700 3500 Balance 880 -3250 Intake: Oral 2580 250 Output: Urine 1700 3500 Straight 700 Uretheral (Escalona) 1000 Other: Voiding Method Toilet Indwelling Catheter Diaper # Voids 1 - Exam Resting comfortably in bed. He is alert and able to answer questions. There is an ice pack over his neck. A focused exam extremity was conducted. The dressing over the anterior aspect of his hip is intact with no drainage or strikethrough. There is some bruising around the dressing. His thigh is moderately swollen but soft and compressible. He can actively fire his quadriceps. He can actively plantarflex and dorsiflex his ankle and toes. - Labs CBC & Chem 7: 01/10/25 03:15 01/11/25 06:05 Labs: Abnormal Lab Results - Last 24 Hours (Table) 01/10/25 01/10/25 01/10/25 Range/Units 11:39 12:03 13:15 Anion Gap (4.00-12.00) mmol/L BUN 33 H (9-20) mg/dL BUN/Creatinine Ratio (12.00-20.00) Ratio Glucose 136 H (74-99) mg/dL POC Glucose (mg/dL) 149 H (70-110) mg/dL Urine Glucose (UA) 4+ H (Negative) 01/10/25 01/10/25 01/11/25 Range/Units 16:33 20:37 06:05 Anion Gap 12.40 H (4.00-12.00) mmol/L BUN (9-20) mg/dL BUN/Creatinine Ratio 22.00 H (12.00-20.00) Ratio Glucose 140 H (74-99) mg/dL POC Glucose (mg/dL) 159 H 152 H (70-110) mg/dL Urine Glucose (UA) (Negative) 01/11/25 Range/Units 06:06 Anion Gap (4.00-12.00) mmol/L BUN (9-20) mg/dL BUN/Creatinine Ratio (12.00-20.00) Ratio Glucose (74-99) mg/dL POC Glucose (mg/dL) 136 H (70-110) mg/dL Urine Glucose (UA) (Negative) Assessment and Plan Assessment: Post operative day #2 status post right direct anterior total hip arthroplasty Plan: Continue treatment as outlined yesterday. We will keep the patient an additional 24 hours for pain control, evaluation of his urinary retention, and reassessment by physical therapy tomorrow for discharge planning. We briefly discussed the possibility of requiring subacute rehab or nursing facility. I will defer to internal medicine for management of his urinary retention. Continue attempts at mobilization out of bed into a chair.
[2025-01-11 09:14] LABS: Basophils # (A) 0.05 X 10*3/uL (0.00-0.10); Basophils % (A) 0.5 %; Eosinophils # (A) 0.07 X 10*3/uL (0.04-0.35); Eosinophils % (A) 0.7 %; HCT 33.6 % (39.6-50.0); HGB 11.2 g/dL (13.0-17.0); Immature Grans, Automated 0.50 %; Lymphocytes # (A) 1.26 X 10*3/uL (0.90-5.00); Lymphocytes % (A) 13.0 %; MCH 32.9 pg (27.0-32.0); MCHC 33.3 g/dL (32.0-37.0); MCV 98.8 FL (80.0-97.0); Monocytes # (A) 1.09 X 10*3/uL (0.20-1.00); Monocytes % (A) 11.3 %; NRBC Per 100 WBC 0 X 10*3/uL (0.00-0.01); Neutrophils # (A) 7.15 X 10*3/uL (1.80-7.70); Neutrophils % (A) 74.0 %; Platelet Count 218 X 10*3/uL (140-440); RBC 3.40 X 10*6/uL (4.40-5.60); RDW 13.0 % (11.5-14.5); WBC 9.67 X 10*3/uL (4.50-10.00)
[2025-01-11 11:32] LABS: Glucose,Whole Blood 132 mg/dL (70-110)
[2025-01-11] MEDS ORDERED: QUEtiapine 25 MG TAB PO PRN (12:01)
[2025-01-11 16:45] LABS: Glucose,Whole Blood 116 mg/dL (70-110)
[2025-01-11 19:47] LABS: Glucose,Whole Blood 158 mg/dL (70-110)
[2025-01-11 21:33] VITALS: RESP 16
[2025-01-12 06:09] LABS: Glucose,Whole Blood 109 mg/dL (70-110)
--- NOTE | 2025-01-12 06:39 | P.PN ---
Subjective Progress Note Date: 01/11/25 - Reason for Consult Consult date: 01/10/25 Medical management, status post right total hip arthroplasty - History of Present Illness This is a pleasant 74-year-old male who was recently admitted under orthopedic services status post right total hip arthroplasty. Patient follows with Dr. Gastelum in the outpatient setting with a past medical history of diabetes melitis, GERD, hard of hearing, BPH, previous left leg rash earlier this month in December, . Patient denies smoking alcohol or illicit drug use. Patient did undergo presurgical clearance and at the bedside reports he had to be evaluated twice by primary care provider as he did have an ongoing concern of a rash on the left lower extremity and did receive a few short days of antibiotics and followed up and is cleared with no skin rash noted. Patient reports has been having some urinary retention and chronically takes finasteride and Flomax and will continue retention protocol with straight cath and monitoring for postvoid residuals and will give an additional dose of Flomax and home medications have been reviewed and resumed. Patient is also a diabetic and blood sugars have been mildly elevated, have added sliding scale and will adjust and add long-acting if needed. Recommend Accu-Cheks AC and at bedtime. Patient with incentive spirometer at the bedside encouraged to continue using at least 10 times every hour while awake. Patient return demonstrated and achieved 2500 although was instructed and reeducated on proper use of incentive spirometer with at bedside. Patient also encouraged to get up out of the bed more frequently and sit up in the chair. Patient maintained on gentle hydration and will discontinue as patient is eating and drinking with no difficulties. Labs reviewed from this morning reveal a mildly elevated white count of 13.8, hemoglobin stable at 11.1, platelets 225, sodium 137 with a potassium of 4.0, BUN is 33 with a creatinine of 1.02, blood sugars have been into the 130s and 140s, hemoglobin A1c is 5.9, magnesium is 2.0. Urinalysis was obtained and is negative other than 4+ glucose. 01/11/2025 Patient is seen in follow-up today apparently was retaining last night requiring an indwelling Escalona catheter. Patient apparently refused his nighttime Flomax also and not sure why and reports he frequently gets confused more so at night. Will add Seroquel at night if patient is having confusion or agitation. Patient will continue with indwelling Escalona catheter with significant history of enlarged prostate. Patient with generalized weakness awaiting to be reevaluated by physical therapy on Sunday to determine if patient is going home or if patient will require rehab. Patient is afebrile with no reports of chest pain or shortness of breath. Patient reports is tolerating diet and will continue with current regimen. Encouraged the use of incentive spirometer at least 10 times every hour while awake Review of systems: Constitutional: No reports of fatigue, fever, or chills Cardiovascular: No reports of chest pain or palpitations Respiratory: No reports of shortness of breath or cough GI: No reports of nausea, vomiting, or diarrhea : No reports of dysuria, was retaining requiring indwelling Escalona catheter Neurovascular: reports of generalized weakness with some right hip pain All medications have been reviewed The rest of the 14-point review of systems is negative. PHYSICAL EXAMINATION: GENERAL: The patient is alert and oriented x3, not in any acute distress. Well developed, well nourished. Elderly appearing, obese HEENT: Pupils are round and equally reacting to light. EOMI. No scleral icterus. No conjunctival pallor. Normocephalic, atraumatic. No pharyngeal erythema. No thyromegaly. CARDIOVASCULAR: S1 and S2 muffled PULMONARY: Diminished breath sounds bilaterally otherwise chest is clear to auscultation, no wheezing or crackles. ABDOMEN: Soft, obese, nontender, nondistended, normoactive bowel sounds. No palpable organomegaly. Escalona catheter noted with clear yellow urine MUSCULOSKELETAL: No joint swelling or deformity. EXTREMITIES: No cyanosis, clubbing, or pedal edema. Right hip surgical dressing is dry and intact, left lower extremity outer lateral side with previous rash has resolved and skin is intact right gaspar, chronic lesion noted NEUROLOGICAL: Gross neurological examination did not reveal any focal deficits. Diffusely weak SKIN: No rashes. Assessment: Status post right total hip arthroplasty Urinary retention with history of BPH and enlarged prostate, Home medications resumed including Flomax, requiring indwelling Escalona catheter Leukocytosis, likely reactive, urinalysis was negative, patient denies cough or shortness of breath or recent sick contacts Obesity with a BMI of 31.4 History of diabetes mellitus, type II History of GERD Hard of hearing GI prophylaxis DVT prophylaxis Full code Plan: Patient was admitted to orthopedics status post right hip arthroplasty, patient will await reevaluation with physical therapy on Sunday to determine if patient will require ECF or okay to go home with family Patient having some urinary retention underwent straight catheterization multiple times and currently has an indwelling Escalona catheter. Continue Flomax and will continue indwelling Escalona catheter for now Home medications reviewed and resumed as appropriate Patient with incentive spirometer at the bedside encouraged to use at least 10 times every hour while awake Patient was maintained on gentle hydration and will discontinue as patient is eating and drinking with no difficulties Labs reviewed and white count mildly elevated, urinalysis was obtained and negative other than 4+ glucose which patient is a diabetic Encouraged increase activity as tolerated and instructed the patient and to sit up more frequently in the chair and continue with incentive spirometer use Patient does become somewhat confused at night, will add as needed Seroquel if patient becomes agitated and confusion We will continue to follow with orthopedics during hospitalization. Thank you kindly for this consultation. The impression and plan of care has been dictated by Eloisa Trejo, Nurse Practitioner as directed. Dr. Sahil MD I have performed a history and examination and MDM of this patient, discussed the same with the dictator, and agree with the dictator's assessment and plan as written ,documented as a scribe. Based on total visit time, I have performed more than 50% of the visit. Objective - Vital Signs Vital signs: Vital Signs Temp 99.0 F 01/11/25 08:00 Pulse 84 01/11/25 08:00 Resp 16 01/11/25 08:00 BP 123/65 01/11/25 08:00 Pulse Ox 96 01/11/25 08:00 FiO2 Intake & Output 01/10/25 01/11/25 01/11/25 18:59 06:59 18:59 Intake Total 2580 250 Output Total 1700 3500 1000 Balance 880 -3250 -1000 Intake: Oral 2580 250 Output: Urine 1700 3500 1000 Straight 700 Uretheral (Escalona) 1000 Other: Voiding Method Toilet Indwelling Catheter Indwelling Catheter Diaper # Voids 1 - Labs CBC & Chem 7: 01/11/25 06:05 01/11/25 06:05 Labs: Abnormal Lab Results - Last 24 Hours (Table) 01/10/25 01/10/25 01/10/25 Range/Units 11:39 12:03 13:15 RBC (4.40-5.60) X 10*6/uL Hgb (13.0-17.0) g/dL Hct (39.6-50.0) % MCV (80.0-97.0) FL MCH (27.0-32.0) pg Immature Gran # (0.00-0.04) X 10*3/uL Monocytes # (0.20-1.00) X 10*3/uL Anion Gap (4.00-12.00) mmol/L BUN 33 H (9-20) mg/dL BUN/Creatinine Ratio (12.00-20.00) Ratio Glucose 136 H (74-99) mg/dL POC Glucose (mg/dL) 149 H (70-110) mg/dL Urine Glucose (UA) 4+ H (Negative) 01/10/25 01/10/25 01/11/25 Range/Units 16:33 20:37 06:05 RBC 3.40 L (4.40-5.60) X 10*6/uL Hgb 11.2 L (13.0-17.0) g/dL Hct 33.6 L (39.6-50.0) % MCV 98.8 H (80.0-97.0) FL MCH 32.9 H (27.0-32.0) pg Immature Gran # 0.05 H (0.00-0.04) X 10*3/uL Monocytes # 1.09 H (0.20-1.00) X 10*3/uL Anion Gap (4.00-12.00) mmol/L BUN (9-20) mg/dL BUN/Creatinine Ratio (12.00-20.00) Ratio Glucose (74-99) mg/dL POC Glucose (mg/dL) 159 H 152 H (70-110) mg/dL Urine Glucose (UA) (Negative) 01/11/25 01/11/25 Range/Units 06:05 06:06 RBC (4.40-5.60) X 10*6/uL Hgb (13.0-17.0) g/dL Hct (39.6-50.0) % MCV (80.0-97.0) FL MCH (27.0-32.0) pg Immature Gran # (0.00-0.04) X 10*3/uL Monocytes # (0.20-1.00) X 10*3/uL Anion Gap 12.40 H (4.00-12.00) mmol/L BUN (9-20) mg/dL BUN/Creatinine Ratio 22.00 H (12.00-20.00) Ratio Glucose 140 H (74-99) mg/dL POC Glucose (mg/dL) 136 H (70-110) mg/dL Urine Glucose (UA) (Negative)
[2025-01-12 07:46] LABS: Basophils # (A) 0.04 X 10*3/uL (0.00-0.10); Basophils % (A) 0.4 %; Eosinophils # (A) 0.27 X 10*3/uL (0.04-0.35); Eosinophils % (A) 3.0 %; HCT 30.4 % (39.6-50.0); HGB 10.1 g/dL (13.0-17.0); Immature Grans, Automated 0.70 %; Lymphocytes # (A) 1.48 X 10*3/uL (0.90-5.00); Lymphocytes % (A) 16.6 %; MCH 33.0 pg (27.0-32.0); MCHC 33.2 g/dL (32.0-37.0); MCV 99.3 FL (80.0-97.0); Monocytes # (A) 0.98 X 10*3/uL (0.20-1.00); Monocytes % (A) 11.0 %; NRBC Per 100 WBC 0 X 10*3/uL (0.00-0.01); Neutrophils # (A) 6.11 X 10*3/uL (1.80-7.70); Neutrophils % (A) 68.3 %; Platelet Count 199 X 10*3/uL (140-440); RBC 3.06 X 10*6/uL (4.40-5.60); RDW 12.9 % (11.5-14.5); WBC 8.94 X 10*3/uL (4.50-10.00)
[2025-01-12 08:01] VITALS: BP 118/67; PULSE 76; TEMP 98.1
--- NOTE | 2025-01-12 08:11 | P.PN ---
Subjective Progress Note Date: 01/12/25 Per nursing team, patient had some confusion overnight. Patient is doing well this morning. They have hip pain but it is controlled. They have a Escal[place] catheter in place. They have walked to the bathroom with a walker and assistance. They deny chest pain or shortness of breath. Objective - Vital Signs Vital signs: Vital Signs Temp 98.1 F 01/12/25 07:00 Pulse 76 01/12/25 07:00 Resp 16 01/12/25 07:00 BP 118/67 01/12/25 07:00 Pulse Ox 97 01/12/25 07:00 FiO2 Intake & Output 01/11/25 01/12/25 01/12/25 18:59 06:59 18:59 Intake Total 2456 Output Total 1999 1849 Balance 457 -185 Intake: Oral 2456 Output: Urine 1999 1849 Other: Voiding Method Indwelling Catheter Indwelling Catheter # Voids 1 - Exam Patient was examined at bedside. Patient is resting comfortably in bed. No apparent distress. They are awake, a lert and able to answer questions. Inspection: The surgical dressing is intact, there is no drainage or strikethrough. The skin surrounding the dressing is free of erythema. There is mild swelling in the operative thigh. Palpation: The right operative calf is soft to compression. No calf tenderness. Neurovascular: Operative femoral nerve function is intact. The patient is able to actively plantarflex and dorsiflex their operative ankle and toes. Operative extremity sensation is intact to light touch throughout. Their operative foot appears well perfused, palpable dorsalis pedis pulse, and capillary refill under 2 seconds. - Labs CBC & Chem 7: 01/12/25 03:03 01/11/25 06:05 Labs: Abnormal Lab Results - Last 24 Hours (Table) 01/11/25 01/11/25 01/11/25 Range/Units 06:05 06:05 11:31 RBC 3.40 L (4.40-5.60) X 10*6/uL Hgb 11.2 L (13.0-17.0) g/dL Hct 33.6 L (39.6-50.0) % MCV 98.8 H (80.0-97.0) FL MCH 32.9 H (27.0-32.0) pg Immature Gran # 0.05 H (0.00-0.04) X 10*3/uL Monocytes # 1.09 H (0.20-1.00) X 10*3/uL Anion Gap 12.40 H (4.00-12.00) mmol/L BUN/Creatinine Ratio 22.00 H (12.00-20.00) Ratio Glucose 140 H (70-110) mg/dL POC Glucose (mg/dL) 132 H (70-110) mg/dL 01/11/25 01/11/25 01/12/25 Range/Units 16:44 19:45 03:03 RBC 3.06 L (4.40-5.60) X 10*6/uL Hgb 10.1 L (13.0-17.0) g/dL Hct 30.4 L (39.6-50.0) % MCV 99.3 H (80.0-97.0) FL MCH 33.0 H (27.0-32.0) pg Immature Gran # 0.06 H (0.00-0.04) X 10*3/uL Monocytes # (0.20-1.00) X 10*3/uL Anion Gap (4.00-12.00) mmol/L BUN/Creatinine Ratio (12.00-20.00) Ratio Glucose (70-110) mg/dL POC Glucose (mg/dL) 116 H 158 H (70-110) mg/dL Assessment and Plan Assessment: Postop day #3 status post right direct anterior total hip arthroplasty Right hip pain multiple medical problems Plan: Weight-bear as tolerated on the operative extremity. Use a walker to ambulate. Leave surgical dressing in place. We appreciate internal medicine for perioperative medical management. We will defer to internal medicine for management of his urinary retention. Disposition: Physical therapy to reevaluate patient. Patient is cleared to discharge from an orthopedic standpoint when cleared by internal medicine and physical therapy recommendations have been made.
[2025-01-12 11:15] LABS: Glucose,Whole Blood 136 mg/dL (70-110)
--- NOTE | 2025-01-12 12:08 | P.DS ---
Providers Attending physician: Rodrigo Davidson Consults: 01/09/25 14:18 Consult Physician Routine Consulting Provider: Samuel Shipley Consult Reason/Comments: post op medical management Do you want consulting provider notified?: Yes Primary care physician: Ricky Gastelum [place] [facility] Course: This is a 74-year-old patient, with past medical history of severe right hip osteoarthritis, who failed nonsurgical conservative management. On 01/10/2025 the patient presented to the [facility] pre-op department for scheduled direct anterior total hip arthroplasty with Dr. Davidson. The patient tolerated the procedure well. The patient was transferred to the orthopedic floor. The patient had no acute events over night. The patient's pain has been well- controlled. The patient had some postoperative urinary retention and medicine recommended discharge with Escalona and follow-up with urology outpatient. Patient was examined at bedside. Patient is resting comfortably in bed. No apparent distress. They are awake, alert and able to answer questions. Inspection: The surgical dressing is intact, there is no drainage or strikethrough. The skin surrounding the dressing is free of erythema. There is mild swelling in the operative thigh. Palpation: The operative calf is soft to compression. No calf tenderness. Neurovascular: Operative femoral nerve function is intact. The patient is able to actively plantarflex and dorsiflex their operative ankle and toes. Operative extremity sensation is intact to light touch throughout Their operative foot appears well perfused, palpable dorsalis pedis pulse, and capillary refill under 2 seconds. Patient worked with physical therapy and it was determined they could discharge home. Plan to discharge home today. Plan follow up in two weeks in our office. Please see med rec for a list of accurate medications. Assessment: Postop day #3 status post right direct anterior total hip arthroplasty Right hip pain Postoperative urinary retention Plan - Discharge Summary Discharge Rx Participant: No New Discharge Prescriptions: Continue Empagliflozin [Jardiance] 10 mg PO QAM Atorvastatin [Lipitor] 10 mg PO QAM Acetaminophen-Codeine 300-30mg [Tylenol w/codeine #3] 1 tab PO Q6H PRN PRN Reason: Pain Magnesium (Unknown Dose) 1 dose PO QAM Calcium(Unknown Dose) 1 dose PO QAM B-12(Unknown Dose) 1 dose PO QAM Tamsulosin [Flomax] 0.4 mg PO HS Meloxicam [Mobic] 7.5 mg PO BID Losartan [Cozaar] 25 mg PO QAM Gabapentin [Neurontin] 300 mg PO TID Finasteride [Proscar] 5 mg PO BID valACYclovir HCL [Valacyclovir] 1,000 mg PO TID Zinc(Unknown Dose) 1 dose PO QAM Multivitamins, Thera [Multivitamin (formulary)] 1 tab PO DAILY Fish Oil (Unknown Dose) 1 dose PO QAM Discharge Medication List Acetaminophen-Codeine 300-30mg [Tylenol w/codeine #3] 1 tab PO Q6H PRN 01/05/25 [History] Atorvastatin [Lipitor] 10 mg PO QAM 01/05/25 [History] B-12(Unknown Dose) 1 dose PO QAM 01/05/25 [History] Calcium(Unknown Dose) 1 dose PO QAM 01/05/25 [History] Empagliflozin [Jardiance] 10 mg PO QAM 01/05/25 [History] Finasteride [Proscar] 5 mg PO BID 01/05/25 [History] Fish Oil (Unknown Dose) 1 dose PO QAM 01/05/25 [History] Gabapentin [Neurontin] 300 mg PO TID 01/05/25 [History] Losartan [Cozaar] 25 mg PO QAM 01/05/25 [History] Magnesium (Unknown Dose) 1 dose PO QAM 01/05/25 [History] Meloxicam [Mobic] 7.5 mg PO BID 01/05/25 [History] Multivitamins, Thera [Multivitamin (formulary)] 1 tab PO DAILY 01/05/25 [History] Tamsulosin [Flomax] 0.4 mg PO HS 01/05/25 [History] Zinc(Unknown Dose) 1 dose PO QAM 01/05/25 [History] valACYclovir HCL [Valacyclovir] 1,000 mg PO TID 01/05/25 [History] Follow up Appointment(s)/Referral(s): Rodrigo Davidson MD [Medical Doctor] - 2 Weeks Activity/Diet/Wound Care/Special Instructions: 1. Weight-bear as tolerated on your operative extremity unless instructed otherwise. Use a walker or other assistive device to ambulate. 2. Leave surgical dressing in place. If your dressing becomes saturated with blood, there is drainage, or the dressing becomes loose please contact the office. It is okay to shower with your surgical dressing as long as it is intact, but do not submerge in water (no hot tubs, bath's, swimming etc.) 3. Anticoagulation: Aspirin 81mg BID. Patient has at home. 4. Pain: [place] 5/325 1-2 q6h PRN. Patient has at home. While taking norco or percocet take a stool softener (Ex: Senokot) and drink lots of water. Patient has Senokot 50 mg / 8.6 mg p.o. twice daily as needed at home. 5. GI Prophylaxis: Omeprazole 20 mg QD. Patient has at home. 6. Keep all follow-up appointments as scheduled. You will usually be seen in 1- 2 weeks following surgery. 7. Please contact the office with any questions or concerns [phone]
[2025-01-12] MEDS: LACTULOSE 20 GM/30 ML CUP PO ONE (12:41)
== END 2025-01-12 14:59 | disposition home health service (06) ==
LOC: OR 10:33 → 4SSUR 14:27 → OR 01-12 14:59
PROVIDERS: ATTEND Orthopaedic Surgery
DX: M16.11 Unilateral primary osteoarthritis, right hip (principal); G89.18 Other acute postprocedural pain; E66.9 Obesity, unspecified; H91.90 Unspecified hearing loss, unspecified ear; E11.9 Type 2 diabetes mellitus without complications; N40.1 Benign prostatic hyperplasia with lower urinary tract symptoms; R33.8 Other retention of urine; Z68.31 Body mass index [BMI] 31.0-31.9, adult; Z79.84 Long term (current) use of oral hypoglycemic drugs; Z79.899 Other long term (current) drug therapy
CPT/HCPCS: 97116; 97161; 64473; 80048; 83735; 85025 ×2; 85610; 81003; 83036; 73501; 71045; 27130; C1776; S0138 ×3; J2250; J1100; J0690 ×2; J2405 ×2; J3010; J1885; J1308